=== PATIENT | male | born 1955 | race Caucasian/White ===

== ENCOUNTER 2019-01-31 07:14 | Outpatient (CLI) | payer OTHER, SELFPAY ==
[2019-01-31 08:24] LABS: Hemoglobin A1C 6.4 % (4.5-6.2)
== END 2019-01-31 07:34 ==
PROVIDERS: PCP General Practice; Visit Provider General Practice
DX: R73.09 Other abnormal glucose (principal)
CPT/HCPCS: 36415; 83036

== ENCOUNTER 2022-10-19 03:58 | Outpatient (CLI) | payer MEDICARE, SELFPAY ==
[2022-10-20 19:20] LABS: PSA, Ultrasensitive 0.11 ng/mL (<= 4.5)
[2022-10-21 15:50] LABS: Testosterone, Total 12 ng/dL (240-950)
== END 2022-10-19 03:59 | disposition home or self-care (01) ==
LOC: LBO 03:58
PROVIDERS: PCP General Practice; Visit Provider Radiology Radiation Oncology
DX: C61 Malignant neoplasm of prostate (principal)
CPT/HCPCS: 36415; 84153; 84403

== ENCOUNTER 2023-01-11 02:46 | Outpatient (CLI) | payer MEDICARE, SELFPAY ==
[2023-01-11 13:08] LABS: Abs Immature Grans 0.03 10^3/uL (0.0-0.06); Absolute Basophil Count 0.03 10^3/uL (0.0-0.2); Absolute Eosinophil Count 0.17 10^3/uL (0.0-0.7); Absolute Lymphocyte Count 0.71 10^3/uL (1.2-3.4); Absolute Monocyte Count 0.65 10^3/uL (0.1-0.8); Absolute Neutrophil Count 5.27 10^3/uL (1.2-6.7); Basophils % 0.4; Eosinophils % 2.5; HCT 40.6 % (40.0-50.0); Immature Grans % 0.4; Lymphocytes % 10.3; MCH 27.4 pg (27.0-33.0); MCV 86 fL (80-95); MPV 8.9 fL (8.0-11.0); Monocytes % 9.5; Neutrophils % 76.9; Platelet Count 255 10^3/uL (130-400); RBC 4.74 10^6/uL (4.36-5.78); RDW 13.1 % (11.8-14.1); RDW-SD 40.7 fL; WBC 6.86 10^3/uL (4.4-10.8)
[2023-01-11 13:23] LABS: ALT 24 U/L (16-63); AST 16 U/L (15-37); Albumin 3.9 g/dL (3.4-5.0); Alkaline Phosphatase 84 U/L (46-116); Anion Gap 7.8 mmol/L (3-11); BUN 14 mg/dL (7-18); Bilirubin, Total 0.2 mg/dL (0.2-1.0); CO2 28.2 mmol/L (21.0-32.0); CREATININE 1.2 mg/dL (0.70-1.30); Calcium 9.3 mg/dL (8.5-10.1); Chloride 106 mmol/L (98-107); Estimated GFR 67.11 (mL/min/1.73m2); Glucose 120 mg/dL (74-106); Potassium 4.1 mmol/L (3.5-5.1); Sodium 142 mmol/L (136-145); Total Protein 7.8 g/dL (6.4-8.2)
[2023-01-12 17:56] LABS: PSA, Ultrasensitive 0.07 ng/mL (<= 4.5)
[2023-01-14 17:38] LABS: Testosterone, Total 9.4 ng/dL (240-950)
== END 2023-01-11 02:47 | disposition home or self-care (01) ==
PROVIDERS: PCP General Practice; Visit Provider Radiology Radiation Oncology
DX: C61 Malignant neoplasm of prostate (principal)
CPT/HCPCS: 36415; 80053; 84153; 84403; 85025

== ENCOUNTER 2023-05-30 02:56 | Outpatient (CLI) | payer MEDICARE, SELFPAY ==
[2023-05-30 09:53] LABS: Abs Immature Grans 0.02 10^3/uL (0.0-0.06); Absolute Basophil Count 0.03 10^3/uL (0.0-0.2); Absolute Eosinophil Count 0.08 10^3/uL (0.0-0.7); Absolute Lymphocyte Count 0.77 10^3/uL (1.2-3.4); Absolute Monocyte Count 0.59 10^3/uL (0.1-0.8); Absolute Neutrophil Count 5.71 10^3/uL (1.2-6.7); Basophils % 0.4; Eosinophils % 1.1; HCT 41.4 % (40.0-50.0); HGB 13.5 g/dL (13.5-17.5); Immature Grans % 0.3; Lymphocytes % 10.7; MCH 27.6 pg (27.0-33.0); MCHC 32.6 % (32.0-36.0); MCV 85 fL (80-95); MPV 9.2 fL (8.0-11.0); Monocytes % 8.2; Neutrophils % 79.3; Platelet Count 258 10^3/uL (130-400); RBC 4.89 10^6/uL (4.36-5.78); RDW 13.6 % (11.8-14.1); RDW-SD 42.1 fL
[2023-05-30 10:13] LABS: ALT 20 U/L (16-63); AST 12 U/L (15-37); Alkaline Phosphatase 101 U/L (46-116); BUN 16 mg/dL (7-18); Bilirubin, Total 0.4 mg/dL (0.2-1.0); CREATININE 1.3 mg/dL (0.70-1.30); Calcium 9.3 mg/dL (8.5-10.1); Chloride 107 mmol/L (98-107); Estimated GFR 60.59 (mL/min/1.73m2); Glucose 119 mg/dL (74-106); Potassium 4.6 mmol/L (3.5-5.1); Sodium 141 mmol/L (136-145); Total Protein 7.9 g/dL (6.4-8.2)
[2023-05-31 18:41] LABS: PSA, Ultrasensitive 0.14 ng/mL (<= 4.5)
[2023-06-02 15:33] LABS: Testosterone, Total 11 ng/dL (240-950)
== END 2023-05-30 02:57 | disposition home or self-care (01) ==
PROVIDERS: PCP General Practice; Visit Provider Nurse Practitioner Family
DX: C61 Malignant neoplasm of prostate (principal)
CPT/HCPCS: 36415; 80053; 84153; 84403; 85025

== ENCOUNTER 2023-12-05 03:45 | Outpatient (CLI) | payer MEDICARE, SELFPAY ==
[2023-12-07 12:46] LABS: PSA, Ultrasensitive 0.19 ng/mL (<= 4.5)
[2023-12-09 03:20] LABS: Testosterone, Total 298 ng/dL (240-950)
== END 2023-12-05 03:46 | disposition home or self-care (01) ==
PROVIDERS: PCP General Practice; Visit Provider Nurse Practitioner
DX: C61 Malignant neoplasm of prostate (principal)
CPT/HCPCS: 36415; 84153; 84403

== ENCOUNTER 2024-06-04 15:46 | Outpatient (CLI) | payer MEDICARE, SELFPAY ==
[2024-06-06 11:58] LABS: PSA, Ultrasensitive 0.21 ng/mL (<= 4.5)
== END 2024-06-04 15:47 | disposition home or self-care (01) ==
LOC: LBO 15:47
PROVIDERS: PCP General Practice; Visit Provider Nurse Practitioner
DX: C61 Malignant neoplasm of prostate (principal)
CPT/HCPCS: 36415; 84153

== ENCOUNTER 2024-12-19 14:19 | Outpatient (CLI) | payer MEDICARE, SELFPAY ==
[2024-12-21 14:37] LABS: PSA, Ultrasensitive 0.26 ng/mL (<= 4.5)
== END 2024-12-19 14:20 | disposition home or self-care (01) ==
LOC: LBO 14:19
PROVIDERS: PCP General Practice; Visit Provider Physician Assistant
DX: C61 Malignant neoplasm of prostate (principal)
CPT/HCPCS: 36415; 84153

== ENCOUNTER 2025-05-01 14:08 | Outpatient (CLI) | payer MEDICARE, SELFPAY ==
[2025-05-02 19:35] LABS: PSA, Ultrasensitive 0.27 ng/mL (<= 4.5)
== END 2025-05-01 14:09 | disposition home or self-care (01) ==
LOC: LBO 14:10
PROVIDERS: PCP General Practice; Visit Provider Physician Assistant
DX: C61 Malignant neoplasm of prostate (principal)
CPT/HCPCS: 36415; 84153

== ENCOUNTER 2025-11-10 11:57 | Outpatient (CLI) | payer MEDICARE, SELFPAY | END 2025-11-10 11:58 | disposition home or self-care (01) | LOC: LBO 11:57 | PROVIDERS: PCP General Practice; Visit Provider Physician Assistant | DX: C61 Malignant neoplasm of prostate (principal) | CPT/HCPCS: 36415; 84153 ==